=== PATIENT | male | born 1950 | race Caucasian/White ===

== ENCOUNTER 2024-02-16 08:27 | Inpatient (IN) | payer MEDICARE ==
[~2024-02-16] VITALS: Ht 175.3 cm; Wt 63.2 kg
[2024-02-16] VITALS (7 sets, daily range): BP systolic 125–140; BP diastolic 70–82; PULSE 61–70; TEMP 98.3–99.1
[2024-02-16] MEDS ORDERED: NS 1,000 ML IV ONE ×2 (09:00→09:45)
[2024-02-16 09:17] LABS: BASO # 0.1 K/mm3 (0.0-0.2); BASO % 0.8 % (0.0-2.0); GRAN # 5.4 K/mm3 (1.4-6.5); GRAN % 87.1 % (42.2-75.2); HEMOGLOBIN 12.9 g/dl (13.5-18.0); LYMPH # 0.4 K/mm3 (1.2-3.4); LYMPH % 5.9 % (20.0-51.0); MEAN CELL VOLUME 102 fl (80.0-100.0); MEAN CORPUSCULAR HEMOGLOBIN 35 pg (27-31); MEAN CORPUSCULAR HGB CONC 35 g/dl (33.0-37.0); MEAN PLATELET VOLUME 10.9 fl (7.4-10.4); MONO # 0.4 K/mm3 (0.1-0.6); MONO % 5.7 % (1.7-9.3); PLATELET COUNT 137 K/mm3 (130-400); RED BLOOD COUNT 3.64 M/mm3 (4.20-5.60); REDCELL DISTRIBUTION WIDTH-CV 12.2 % (11.5-14.5)
[2024-02-16 09:38] LABS: ALANINE AMINOTRANSFERASE 30 U/L (0-55); ALBUMIN 3.9 g/dL (3.4-4.8); ALKALINE PHOSPHATASE 86 U/L (40-150); ANION GAP 23 mmol/L (7-16); AST,SGOT 59 U/L (5-34); BILIRUBIN,TOTAL 0.9 mg/dL (0.2-1.2); BLOOD UREA NITROGEN 14 mg/dL (8-26); CALCIUM 9.6 mg/dL (8.4-10.2); CHLORIDE 103 mEq/L (98-107); CREATININE, serum 1.09 mg/dL (0.72-1.25); GLUCOSE 152 mg/dL (70-99); POTASSIUM 4.3 mEq/L (3.5-4.5); SODIUM 140 mEq/L (136-145); TOTAL PROTEIN 7.1 g/dl (6.2-8.1)
[2024-02-16] MEDS ORDERED: cefTRIAXone 1 G in Water For Injection,Sterile 10 ML IV ONE (09:45)
[2024-02-16 09:47] LABS: TROPONIN-I < 0.010 ng/mL (0.00-0.033)
[2024-02-16] MEDS ORDERED: Iohexol 300 - 100 ML VIAL IV ONE (09:50)
[2024-02-16] MEDS ORDERED: NS 100 ML IV SCH (09:51)
[2024-02-16] MEDS ORDERED: ANTIVERT 25MG25 MG PO (10:15)
[2024-02-16] MEDS ORDERED: VENTOLIN0.09 MG IH (10:15)
[2024-02-16 10:32] LABS: URINE APPEARANCE CLEAR (CLEAR/HAZY); URINE BLOOD 2+ (NEGATIVE); URINE COLOR YELLOW (YELLOW); URINE GLUCOSE NEGATIVE (NEGATIVE); URINE KETONE 1+ (NEGATIVE); URINE NITRATE NEGATIVE (NEGATIVE); URINE PROTEIN(semi-quant) 1+ (NEGATIVE)
[2024-02-16 10:55] LABS: COLLECTION METHOD CLEAN CATCH
[2024-02-16] MEDS ORDERED: NS 1,000 ML IV SCH (14:00)
[2024-02-16] MEDS ORDERED: Acetaminophen 325 MG TAB PO PRN (14:00)
[2024-02-16] MEDS ORDERED: Polyethylene Glycol 3350 17 GM PDS PO PRN (14:00)
[2024-02-16] MEDS ORDERED: Docusate Sodium 100 MG CAP PO PRN (14:00)
[2024-02-16] MEDS ORDERED: Ondansetron 4 MG/2 ML VIAL IV PRN (14:00)
[2024-02-16] MEDS ORDERED: Gadoterate 15 ML VIAL IV ONE (14:30)
--- NOTE | 2024-02-16 17:02 | NUR ---
patient arrived to floor at 1700. admission, assessment and med rec to be completed. hospitalist visiting with patient at this time. familiy at bedside
--- NOTE | 2024-02-16 17:53 | NUR ---
ADMISSION COMPLETED. QUESTIONS ANSWERED BY PATIENT AND AT BEDSIDE. PATIENT STATES HE ONLY DRINKS A COUPLE OF ALCOHOLIC DRINKS EVERY OTHER DAY BUT STATES PATIENT DRINKS DAILY AND HAS MORE THAN A FEW DRINKS. PATIENT EXHIBTS TREMORS IN ARMS,LEGS AND HAS TROUBLE ANSWERING QUESTIONS. PATIENT AND BOTH ADMITTE PATIENT IS HARD OF HEARING AND DOES NOT USE HEARING AIDS CAUSING HIM TO NOT ALWAYS UNDERSTAND OR HEAR QUESTIONS ASKED.
--- NOTE | 2024-02-16 18:12 | NUR ---
PATIENT STATES LAST DRINK WAS 02/15/24 IN THE AFTERNOON.
[2024-02-16] MEDS ORDERED: LORazepam 2 MG/ML 1 ML VIAL IV PRN (18:15)
[2024-02-16] MEDS ORDERED: LORazepam 1 MG TAB PO PRN (18:15)
[2024-02-16 19:56] LABS: INR 1.1 (0.8-3.0); PROTHROMBIN TIME 11.7 SECONDS (9.7-12.8)
[2024-02-16 19:58] LABS: PARTIAL THROMBOPLASTIN TIME 28.2 SECONDS (26.0-37.0)
[2024-02-16] MEDS ORDERED: Atorvastatin 40 MG TAB PO SCH (21:00)
--- NOTE | 2024-02-16 22:57 | NUR ---
patient lying in bed, alert and oriented x4. denies chest pain and shortness of breath. IV in LF with NS running at 100 ml/hr. bruising noted to forehead and small temporal closed abrasions to scalp, obersvable tremors noted at rest. fall precautions in place, at bedside. call light within reach, swallowing medication tolerated. denies nausea, headache, anxiety and additional detox sysmptoms. general weakness during ambulation. seizure precautions in place. pt has no further needs, questions or concerns at this time.
[2024-02-17] VITALS (21 sets, daily range): BP systolic 91–133; BP diastolic 53–89; PULSE 53–116; TEMP 97.6–99.2
[2024-02-17] MEDS ORDERED: Magnesium Sulfate 4% 50 ML IV ONE (07:45)
[2024-02-17] MEDS ORDERED: Multivitamin TAB PO SCH (08:00)
--- NOTE | 2024-02-17 08:30 | NUR ---
PATIENT RESTING IN BED UPON ENTERING ROOM. MORNING MEDICATIONS ADMINISTERED PER eMAR. PATIENT DENIES ANY PAIN OR NEEDS AT THIS TIME. UPDATED ON PLAN OF CARE. PATIENT FEELS LIKE HES AT HIS BASELINE, HAS TREMORS THAT HE STATES HAVE BEEN PRESENT FOR ABOUT A MONTH NOW. UPDATED ON PLAN OF CARE. IVF INFUSING. CALL LIGHT WITHIN REACH. WILL CONTINUE TO MONITOR.
[2024-02-17 08:45] LABS: ALBUMIN 2.9 g/dL (3.4-4.8); CALCIUM 8.4 mg/dL (8.4-10.2); CREATININE, serum 0.78 mg/dL (0.72-1.25); POTASSIUM 3.6 mEq/L (3.5-4.5); TOTAL PROTEIN 5.5 g/dl (6.2-8.1)
[2024-02-17] MEDS ORDERED: Folic Acid 1 MG TAB PO SCH (09:00)
--- NOTE | 2024-02-17 10:23 | NUR ---
shafting worker spoke with OT whom reports patient did really well during his session and walked to the end of the hallway and back but was a little shaky. SW reviewed patient's chart and it states patient drinks daily and has had tremors recently. SW met with patient and his , Christa, P# [phone], to discuss discharge planning. Patient lives in [place] with his . Second point of contact is Yasmine Mccracken, daughter, P# [phone]. PCP is Dr. Phillips, Pharmacy is [facility]. No issues affording medications. Insurance is Medicare A and B and [employer] Senior Supplemental. DPOA-HC is Christa then Yasmine and Bee (daughters). No current DME at home. Patient reports to be independent with ADLS and can transport himself to and from appointments. SW discussed drug and alcohol resources and AA meetings and provided this information to the patient. SW discussed home health services at length about their services and provided the Medicare.gov list of home health options. SW explained if he was wanting home health, she would assist with sending the referral. Patient asked if he could wait, perinatal social worker explained once patient discharges from the hospital, his primary care physician would need to send the orders for home health and he would need to have a face to face appointment with his doctor to have those orders placed. Patient's was open to having home health directly from the hospital to prevent falls but patient stated he wanted to wait until he sees Dr. Phillips. Patient's stated that it was his life and he could make that decision. SW explained if PT and ST visit with him and recommend home health from the hospital she could follow up with them and get the preferences. SW left her contact information on patient's board for any questions or concerns. SW contacted Marcial Coburn RN Case Manager, and left a detailed voicemail regarding patient potentially wanting home health services during follow up with Dr. Phillips. Discharge plan: Home
--- NOTE | 2024-02-17 13:30 | NUR ---
D: Spinning Lathe Operator stopped by room on rounds. A: Pt was resting and content with in the room. Pt has no needs right now. Pt appreciated the visit. P: Spinning Lathe Operator informed pt that if he needed anything from the brick extruder operator area to let his nurse know. Spinning Lathe Operator will follow up as needed.
[2024-02-17] MEDS ORDERED: Metoprolol Tartrate 5 MG/5 ML VIAL IV SCH (22:45)
[2024-02-17] MEDS ORDERED: dilTIAZem 25 MG/5 ML VIAL IV ONE (23:45)
[2024-02-18] VITALS (25 sets, daily range): BP systolic 81–128; BP diastolic 51–76; PULSE 37–94; TEMP 97.4–98.6
[2024-02-18 06:07] LABS: BASO # 0.1 K/mm3 (0.0-0.2); BASO % 1.4 % (0.0-2.0); EOS # 0.1 K/mm3 (0.0-0.7); EOS % 2.9 % (0.0-4.0); GRAN # 1.9 K/mm3 (1.4-6.5); GRAN % 54.8 % (42.2-75.2); HEMOGLOBIN 11.1 g/dl (13.5-18.0); LYMPH % 29.4 % (20.0-51.0); MEAN CELL VOLUME 103 fl (80.0-100.0); MEAN CORPUSCULAR HEMOGLOBIN 35 pg (27-31); MEAN CORPUSCULAR HGB CONC 34 g/dl (33.0-37.0); MONO # 0.4 K/mm3 (0.1-0.6); MONO % 10.9 % (1.7-9.3); PLATELET COUNT 103 K/mm3 (130-400); RED BLOOD COUNT 3.15 M/mm3 (4.20-5.60); REDCELL DISTRIBUTION WIDTH-CV 12.2 % (11.5-14.5)
[2024-02-18 06:11] LABS: HEMATOCRIT 32.3 % (42.0-52.0)
[2024-02-18 06:28] LABS: BILIRUBIN,TOTAL 0.9 mg/dL (0.2-1.2); CALCIUM 8.7 mg/dL (8.4-10.2); CREATININE, serum 0.85 mg/dL (0.72-1.25); POTASSIUM 4.4 mEq/L (3.5-4.5); TOTAL PROTEIN 5.5 g/dl (6.2-8.1)
--- NOTE | 2024-02-18 06:45 | NUR ---
ASSESSMENT COMPLETE FOR NEUROLOGY TEACHER. pt HAD AN EVENTFUL NIGHT. AT THE BEGINNING OF THE SHIFT, pt DENIED GENERAL PAIN, CHEST PAIN, PALPITATIONS, SOB, N,V,D OR DIZZINESS. THEN AT 2234HRS, TELE CALLED STATING THAT pt's HR HAD GONE INTO THE 140'S, 150'S AND pt WAS IN A-FIB. HOSPITALIST (JEFF REYES) CALLED AT 2237HRS. HOSPITALIST ORDERED pt TO BE GIVEN 5MG LOPRESSOR Q5MIN, UP TO 3 DOSES UNTIL pt's HR <110BPM. LOPRESSOR GIVEN. pt's HR REMAINED >110 AND pt STILL IN A-FIB. HOSPITALIST (JEFF HANEY) CALLED. NEW ORDERS GIVEN GET AN EKG, GIVE pt A 20MG CARDIZEM BOLUS AND START A CARDIZEM DRIP AT 5ML/HR. BOLUS GIVEN. DRIP STARTED. VITALS MONITORED. pt's B/P DOWN TO 80'S/50'S, HR DOWN TO THE HIGH 40'S TO 50'S. HOSPITALIST CALLED. PARAMETERS GIVEN TO CONTINUE DRIP LONG MAP 65 OR ABOVE AND HR 45 BPM OR ABOVE. AT 0416HRS TELE CALLED STATING pt's HR HAD DROPPED INTO THE UPPER 30'S. DRIP STOPPED IMMEDIATELY. HOSPITALIST (JEFF HANEY) CALLED. pt CLOSELY MONITORED. AT 0439HRS, TELE CALLED STATING pt HAD CONVERTED BACK TO NORMAL SINUS RHYTHM BUT REMAINED MIKEL. HOSPITALIST INFORMED. THEN AROUND 0630HRS, pt's CAME OUT TO THE DESK STATING, pt WAS COMPLAINING OF CHEST TIGHTNESS. A SET OF VITALS TAKEN. HOSPITALIST (JEFF HANEY) CALLED. TROPONIN AND BMP LABS ORDERED. WILL CONTINUE TO MONITOR AND PASS ON TO DAYSHIFT RN. FALL PRECAUTIONS IN PLACE. BED ALARM ON. CALL LIGHT WITHIN REACH.
[2024-02-18] MEDS ORDERED: Thiamine 100 MG TAB PO SCH (09:00)
--- NOTE | 2024-02-18 09:31 | NUR ---
PATIENT RESTING IN BED WITH AT BEDSIDE. PATIENT REPORTS HE HAD SOME CHEST TIGHTNESS THIS MORNING THAT HAS NOW RESOLVED. DENIES ANY PAIN OR CONCERNS AT THIS TIME. PATIENT AND ARE EAGER TO HEAR RECOMMENDATIONS FROM NEURO AND PLAN OF CARE. CARDIOLOGY CONSULTED. UPDATED FAMILY. CALL LIGHT WITHIN REACH. WILL CONTINUE TO MONITOR.
[2024-02-18] MEDS ORDERED: Magnesium Sulfate 4% 50 ML IV ONE (15:30)
--- NOTE | 2024-02-18 18:07 | NUR ---
PATIENT REPORTED TO THIS RN THAT HE AWOKE FROM A NAP AND HAD SOME VISUAL IMPAIRMENT, STATED THE WALL INFRONT OF HIM APPEARED UPSIDE DOWN. HE ALSO REPORTED A TINGLING FEELING ACROSS HIS FOREHEAD. PATIENT STATED THAT ALL OF THOSE THINGS HAVE RESOLVED. WILL CONTINUE TO MONITOR.
[2024-02-18] MEDS ORDERED: Apixaban 5 MG TABLET PO SCH (21:00)
[2024-02-19] VITALS (13 sets, daily range): BP systolic 107–146; BP diastolic 66–89; PULSE 50–61; TEMP 97.7–98.8
[2024-02-19 06:30] LABS: BASO # 0.1 K/mm3 (0.0-0.2); BASO % 1.8 % (0.0-2.0); EOS # 0.1 K/mm3 (0.0-0.7); EOS % 3.9 % (0.0-4.0); GRAN # 1.9 K/mm3 (1.4-6.5); GRAN % 55.3 % (42.2-75.2); HEMOGLOBIN 10.6 g/dl (13.5-18.0); LYMPH # 0.9 K/mm3 (1.2-3.4); MEAN CELL VOLUME 101 fl (80.0-100.0); MEAN CORPUSCULAR HEMOGLOBIN 35 pg (27-31); MEAN CORPUSCULAR HGB CONC 35 g/dl (33.0-37.0); MEAN PLATELET VOLUME 11.4 fl (7.4-10.4); MONO # 0.4 K/mm3 (0.1-0.6); MONO % 10.4 % (1.7-9.3); PLATELET COUNT 105 K/mm3 (130-400); RED BLOOD COUNT 3.02 M/mm3 (4.20-5.60); REDCELL DISTRIBUTION WIDTH-CV 11.8 % (11.5-14.5)
[2024-02-19 06:43] LABS: HEMATOCRIT 30.5 % (42.0-52.0)
[2024-02-19 06:57] LABS: ALBUMIN 2.9 g/dL (3.4-4.8); BILIRUBIN,TOTAL 0.7 mg/dL (0.2-1.2); CALCIUM 8.4 mg/dL (8.4-10.2); CREATININE, serum 0.76 mg/dL (0.72-1.25); POTASSIUM 3.6 mEq/L (3.5-4.5); TOTAL PROTEIN 5.4 g/dl (6.2-8.1)
--- NOTE | 2024-02-19 08:00 | NUR ---
PATIENT RESTING IN BED UPON ENTERING ROOM. MORNING MEDICATIONS ADMINISTERED PER eMAR. PATIENT AND UPDATED ON PLAN OF CARE. PATIENT DENIES ANY VISUAL OR TACTILE HALLUCINATIONS OVER NIGHT. CALL LIGHT WITHIN REACH, BED ALARM IN PLACE. WILL CONTINUE TO MONITOR.
[2024-02-20] VITALS (12 sets, daily range): BP systolic 112–1114; BP diastolic 67–87; PULSE 48–66; TEMP 97.8–98.4
[2024-02-20 07:47] LABS: BASO # 0.1 K/mm3 (0.0-0.2); BASO % 1.3 % (0.0-2.0); EOS # 0.1 K/mm3 (0.0-0.7); EOS % 3.7 % (0.0-4.0); GRAN % 53.6 % (42.2-75.2); HEMOGLOBIN 11.2 g/dl (13.5-18.0); LYMPH % 26.7 % (20.0-51.0); MEAN CELL VOLUME 102 fl (80.0-100.0); MEAN CORPUSCULAR HEMOGLOBIN 35 pg (27-31); MEAN CORPUSCULAR HGB CONC 35 g/dl (33.0-37.0); MEAN PLATELET VOLUME 10.6 fl (7.4-10.4); MONO # 0.5 K/mm3 (0.1-0.6); MONO % 13.9 % (1.7-9.3); PLATELET COUNT 121 K/mm3 (130-400); RED BLOOD COUNT 3.17 M/mm3 (4.20-5.60)
[2024-02-20 07:48] LABS: HEMATOCRIT 32.3 % (42.0-52.0)
[2024-02-20 08:00] LABS: CALCIUM 8.8 mg/dL (8.4-10.2); CREATININE, serum 0.82 mg/dL (0.72-1.25); POTASSIUM 4.1 mEq/L (3.5-4.5)
--- NOTE | 2024-02-20 08:35 | NUR ---
PATIENT RESTING IN BED UPON ENTERING ROOM, AT BEDSIDE. MORNING MEDICATIONS HELD DUE TO NPO STATUS THIS MORNING. THIS RN UPDATED PATIENT AND FAMILY ON PLAN OF CARE, ALL QUESTIONS ANSWERED. PATIENT DENIES ANY PAIN OVER NIGHT. CALL LIGHT WITHIN REACH. WILL CONTINUE TO MONITOR.
[2024-02-20] MEDS ORDERED: Regadenoson 0.08 MG/ML 5 ML SYRINGE IV SCH (09:51)
[2024-02-20] MEDS ORDERED: LIPITOR 40MG TA40 MG PO (13:13)
[2024-02-20] MEDS ORDERED: ELIQUIS 5MG PO (13:13)
[2024-02-20] MEDS ORDERED: FOLIC ACID 11 MG/TA1 PO (13:14)
[2024-02-20] MEDS ORDERED: BETAPACE 80MG80 MG PO (13:14)
[2024-02-20] MEDS ORDERED: THIAMINE 1100 MG/TAB PO (13:14)
[2024-02-20] MEDS ORDERED: MULTI VITAMINS1 TAB PO (13:15)
--- NOTE | 2024-02-20 13:26 | NUR ---
Miles tolerated loop implant with Dr. Nelson with no problem. I reviewed post procedure instructions r/t site care and bedside monitor with Miles, and with Christa his . They both verbalized understanding. BS report and handoff of care to Yuni HAIDER.
--- NOTE | 2024-02-20 13:40 | NUR ---
THIS RN CONACTED FRANCIA FROM CONFECTIONERY LABORATORY MANAGER TO INFORM HER THAT THE PATIENTS LOOP RECORDER INSERTION SITE STARTED SLOWLY OOZING BLOOD INTO THE DRESSING. SHE INFORMED ME SHE WOULD COME UP AND TAKE A LOOK AT IT.
--- NOTE | 2024-02-20 13:48 | NUR ---
Powder And Primer Canning Leader met with patient and his to present and review IM. Patient verbalized understanding and provided signature. SW placed form in chart and provided copy to patient.
--- NOTE | 2024-02-20 15:02 | NUR ---
Gauze dressing >50% saturated with blood. New steristrips, mastisol and dressing applied to loop site after holding mild pressure for 40 minutes. As of now, new dressing remains clean and dry. Report given to Yuni HAIDER who will continue to monitor.
--- NOTE | 2024-02-20 15:42 | NUR ---
DISCHARGE INSTRUCTIONS REVIEWED, AT BEDSIDE, ALL QUESTIONS ANSWERED. IV AND TELEMETRY REMOVED. PATIENT LOOP RECORDER DRESSING IS C/D/I. PATIENT ESCORTED OFF OF UNIT WITH PERSONAL BELONGINGS WITH VIA RICHA STAFF. PATIENT KEFT VIA PRIVATE VEHICLE WITH .
--- NOTE | 2024-02-20 17:32 | NUR ---
THIS RN WAS CONTACTED BY SOCIAL WORK AND NOTIFIED THAT HAD A QUESTION ABOUT MEDICATIONS TO PI/SENIOR RESEARCH ASSOCIATE. THIS RN ATTEMPTED TO CALL THE AT THIS TIME AND NO ONE ANSWERED.
== END 2024-02-20 15:47 | disposition home or self-care (01) | DRG 41 ==
LOC: COL.ER 08:27 → MEDICAL 13:40
PROVIDERS: Personal Emergency Response Attendant; ADMIT Hospitalist
PROC: 0JH632Z Insertion of Monitoring Device into Chest Subcutaneous Tissue and Fascia, Percutaneous Approach (ICD-10-PCS; principal; 2024-02-20)
DX: I63.9 Cerebral infarction, unspecified (principal); E44.0 Moderate protein-calorie malnutrition; I48.20 Chronic atrial fibrillation, unspecified; Z68.1 Body mass index [BMI] 19.9 or less, adult; E87.20 Acidosis, unspecified; F10.130 Alcohol abuse with withdrawal, uncomplicated; E83.42 Hypomagnesemia; R29.701 NIHSS score 1; Z79.899 Other long term (current) drug therapy; Z79.51 Long term (current) use of inhaled steroids; Z87.891 Personal history of nicotine dependence; Z86.73 Personal history of transient ischemic attack (TIA), and cerebral infarction without residual deficits
CPT/HCPCS: A9500-JZ; A9575; C1764; J0696; J2785; J3411; J3475; J7030; Q3014; Q9967